=== PATIENT | female | born 1960 | race Caucasian/White ===

== ENCOUNTER 2018-10-05 16:09 | Outpatient (CLI) | payer BC ==
--- NOTE | 2018-10-05 17:45 | RAD ---
TWO VIEWS LUMBAR SPINE AP AND LATERAL VIEWS LUMBAR SPINE WEIGHTBEARING 10/05/18 HISTORY: Back pain. AP and lateral views lumbar spine demonstrate five nonribbearing lumbar vertebrae. There is minimal d extroscoliosis at the L3-4 level. Disc spaces are well maintained. No evidence of disc space height l oss seen. No evidence of fracture seen. Osteopenia is seen in the lumbar spine. Atherosclerotic calcifications seen in the abdominal aorta. IMPRESSION: Osteopenia but no evidence of acute fractures or bony lesions seen. POS: [facility]
== END 2018-10-05 16:10 | disposition home or self-care (01) ==
LOC: BICRAD 16:09
PROVIDERS: ATTEND Family Medicine
DX: M54.5 Low back pain (principal); G83.10 Monoplegia of lower limb affecting unspecified side; M85.88 Other specified disorders of bone density and structure, other site
CPT/HCPCS: 72100